=== PATIENT | male | born 1960 | race Caucasian/White ===

== ENCOUNTER 2024-10-01 07:38 | Outpatient (CLI) | payer BC, MEDICAID ==
[~2024-10-01] VITALS: Ht 193 cm; Wt 154.2 kg
[2024-10-01] MEDS: REGADENOSON 0.4 MG/5 ML SYRG IV ONE (09:39)
--- NOTE | 2024-10-06 07:19 | DVHSR ---
APPROVED REPORT Exam: Nuclear Stress Test Indication: HTN BMI: 0 Medical History Medical History: HTN, HLD, DVT Allergies: No known drug allergies Stress Test Details Stress Test: Pharmacologic stress testing performed using 0.4 mg of regadenoson per 5 mL given IV ov er 10 seconds. HR Resting HR: 64 bpmMax Heart Rate (APMHR): 154.620438 bpm Max HR Achieved: 90 bpmTarget HR (85% APMHR): 130.907367 bpm % of APMHR: 58.44 Recovery HR: 78 bpm BP Resting BP: 127/82 mmHg Recovery BP: 134/88 mmHg ECG Resting ECG: Sinus Rhythm Clinical Reason for Termination: Completed protocol Nurse Comments Recieved pt. from [facility]. A/Ox4 on RA. Connected to nuclear monitoring technician, VS stable. PIV flushes well. Reviewed POC. Pt. verbalized understanding of procedure including risks and side ef fects, agrees for stress testing. Lexiscan stress test performed per protocol. [facility] tech administered Cardiolite. Pt. tolerated well . Pt. stable, no change on exam. VS returned to baseline. Transferred to [facility] via wheelchair w/ te ch. Stress ECG Conclusion lvef 67% normal perfusion scan GI artifact noted no severe ischemia noted NM EXAM: Myocardial Perfusion REST/STRESS Imaging Protocol: Rest Tc-99m/Stress Tc-99m 1 day Resting Data Rest SPECT myocardial perfusion imaging was performed in supine position 60 minutes following the int ravenous injection of 10.0 mCi of Tc-99m Sestamibi. Time of rest injection: 08:00 Date: 10/01/2024 Time of rest imagin:45 Date: 10/01/2024 Administration Route: IV Administration Site: Left Arm Pharmacologic Stress Pharmacologic stress test was performed by injecting Regadenoson 0.4 mg IV push followed by the intra venous injection of 33.4 mCi of Tc-99m Sestamibi. Time of stress injection: 09:40 Date: 10/01/2024 Time of stress imagin:40 Date: 10/01/2024 Administration Route: IV Administration Site: Left Arm Gated Stress SPECT was performed 60 minutes after stress injection. The images were gated to evaluate regional wall motion and calculate left ventricular ejection fracti on. Stress only was performed in the Supine position. Nuclear Conclusion Nuclear Findings: negative for ischemia lvef 67% normal perfusion scan GI artifact noted no severe ischemia noted
== END 2024-10-01 17:00 | disposition home or self-care (01) ==
LOC: XYW 07:38
PROVIDERS: ATTEND Specialist
DX: I10 Essential (primary) hypertension (principal); E78.5 Hyperlipidemia, unspecified; E66.9 Obesity, unspecified; Z86.718 Personal history of other venous thrombosis and embolism
CPT/HCPCS: 78452; 93017; A9500